=== PATIENT | female | born 1970 | race Caucasian/White ===

== ENCOUNTER 2023-03-02 20:07 | Emergency (ER) | payer SELFPAY ==
[~2023-03-02] VITALS: Ht 173.9 cm; Wt 54.0 kg
[2023-03-02] MEDS ORDERED: CYCLOBENZAPRINE10 MG PO (23:24)
[2023-03-02] MEDS ORDERED: MELOXICAM15 MG PO (23:24)
== END 2023-03-02 23:45 | disposition home or self-care (01) ==
LOC: ED 20:07
DX: M54.50 Low back pain, unspecified (principal); M62.830 Muscle spasm of back; Z88.2 Allergy status to sulfonamides; Z87.891 Personal history of nicotine dependence

== ENCOUNTER 2024-02-10 10:44 | Emergency (ER) | payer MEDICAID ==
[~2024-02-10] VITALS: Ht 172.7 cm; Wt 54.0 kg
[~2024-02-10 10:44] MED LIST: CYCLOBENZAPRINE10 MG PO; MELOXICAM15 MG PO
[2024-02-10] MEDS ORDERED: Acetaminophen/Hydrocodone 5 MG/325 MG TABLET PO ONE (11:05)
[2024-02-10 11:12] LABS: BASO # 0.1 10*3/uL (0.0-0.1); BASO % 0.5 % (0.0-1.0); EOS # 0.1 10*3/uL (0.0-0.4); EOS % 0.7 % (1.0-4.0); HEMATOCRIT 44.2 % (37.0-47.0); MEAN CELL VOLUME 95.3 fl (81.0-99.0); MEAN CORPUSCULAR HGB 31.5 pg (27.0-31.0); MEAN PLATELET VOLUME 9.2 fl (9.6-12.3); MONO # 0.7 10*3/uL (0.1-1.0); MONO % 5.6 % (3.0-9.0); NEUT # 8.2 10*3/uL (2.3-7.9); NEUT % 70.1 % (47.0-73.0); PLATELET COUNT AUTOMATED 321 10*3/uL (130-400); RED BLOOD COUNT 4.64 10*6/uL (4.10-5.10); RED CELL DISTRI WIDTH 13.2 % (0-14.5); WHITE BLOOD COUNT 11.7 10*3/uL (4.8-10.8)
[2024-02-10] MEDS ORDERED: VALIUM10 MG PO (11:20)
[2024-02-10] MEDS ORDERED: LORazepam 1 MG TAB PO ONE (11:25)
[2024-02-10 11:29] LABS: BILIRUBIN Negative (Negative); BLOOD Negative (Negative); CLARITY Clear (Clear); COLOR Yellow (Yellow); GLUCOSE Negative (Negative); KETONE Trace (Negative); LEUKO ESTERASE Negative (Negative); NITRITE Negative (Negative)
[2024-02-10 11:34] LABS: BUN 12 mg/dl (9-23); CHLORIDE 105 mmol/L (98-107)
[2024-02-10 11:37] LABS: BACTERIA 2+; MUCOUS 2+; RBC 0-2 rbc/hpf (0-2)
[2024-02-10] MEDS ORDERED: predniSONE 20 MG TAB PO ONE (12:30)
[2024-02-10] MEDS ORDERED: PREDNISONE50 MG PO (12:33)
== END 2024-02-10 12:31 | disposition home or self-care (01) ==
LOC: ED 10:44
PROVIDERS: Nurse Practitioner Family
DX: R10.31 Right lower quadrant pain (principal); R07.81 Pleurodynia; F41.9 Anxiety disorder, unspecified; Z88.2 Allergy status to sulfonamides